=== PATIENT | male | born 1955 | race Caucasian/White ===

== ENCOUNTER 2016-09-23 06:35 | Day surgery (SDC) | payer BC ==
[~2016-09-23] VITALS: Ht 175.3 cm; Wt 97.4 kg
[~2016-09-23 06:35] MED LIST: ALBU6.7H INH; ATOR80TA76 PO; BUDE10.22 INH; FLUT16SP NAS; LISI-621 PO; METO25TA6 PO; RIVA20TA PO; VENL100T4 PO
--- OUTSIDE RECORDS SUMMARY | 2016-09-23 06:38 | XMS REPORT | Referral Summary ---
Author Author [facility] Organization [facility] Address Unknown Phone Unavailable Care Team Providers Care Supervisor Brine Name Role Phone Comfort John Primary Care Physician [phone] Encounter VC Date(s): 05/27/15 - 05/27/15 [facility] [address] [place], [place] [address] Discharge Diagnosis: Tobacco user Discharge Diagnosis: Screen for colon cancer Discharge Diagnosis: Hypertension Discharge Diagnosis: Physical exam Discharge Diagnosis: Chronic atrial fibrillation Discharge Diagnosis: Depression Discharge Diagnosis: Hypercholesterolemia Discharge Diagnosis: Hematuria Discharge Diagnosis: Obesity Discharge Diagnosis: On continuous oral anticoagulation Discharge Disposition: 01-Home or Self Care Attending Physician: Clarissa Serrano APRN Admitting Physician: Clarissa Serrano APRN Vital Signs Most recent to 1 oldest [Reference Range]: Peripheral Pulse 72 bpm Rate [60-100 bpm] (05/27/15 8:38 AM) Blood Pressure 118/70 mmHg [90-140/60-90 mmHg] (05/27/15 8:38 AM) Problem List Condition Effective Dates Status Health Status Informant Atrial Active fibrillation(Confirm ed) Depression(Confirmed Active ) On continuous oral Active anticoagulation(Conf irmed) Flu vaccine Active need(Confirmed) Obesity(Confirmed) Active patient Screen for colon Active cancer(Confirmed) Tobacco Active patient user(Confirmed) Transient ischemic < 03/27/15 Resolved attack (TIA)(Confirmed) Chicken < 03/27/15 Resolved pox(Confirmed) Allergies, Adverse Reactions, Alerts No Known Medication Allergies Medications atorvastatin 40 mg oral tablet 40 mg 1 tabs, Oral, Daily, # 30 tabs, 3 Refill(s), Pharmacy: [facility] [id number], 1 tabs Oral Daily Start Date: 03/25/15 Status: Ordered lisinopril 20 mg oral tablet 20 mg 1 tabs, Oral, Daily, # 30 tabs, 3 Refill(s), Pharmacy: [facility] [id number] Start Date: 03/25/15 Status: Ordered metoprolol tartrate 25 mg oral tablet 25 mg 1 tabs, Oral, BID, # 60 tabs, 3 Refill(s), [facility]: [facility] [address] Start Date: 03/25/15 Status: Ordered venlafaxine 150 mg oral tablet, extended release 150 mg 1 tabs, Oral, Daily, # 30 tabs, 3 Refill(s), Pharmacy: [facility] [id number], 1 tabs Oral Daily Start Date: 03/25/15 Status: Ordered Xarelto 20 mg oral tablet 20 mg 1 tabs, Oral, qPM, # 30 tabs, 3 Refill(s), Pharmacy: [facility] [address], 1 tabs Oral qPM Start Date: 03/25/15 Status: Ordered Results No data available for this section Immunizations No data available for this section Procedures Procedure Date Related Diagnosis Body Site circumcision inguinal hernia sinus surgery vasectomy Social History Social History Type Response Smoking Status Current every day smoker; Type: Cigarettes; Tobacco use per day: 1 Pack; Number of years: 40 Assessment and Plan Extracted from: Title: Office Visit Note-physical Author: Clarissa Serrano APRN Date: Assessment/Plan 1.Physical exam Normal physical examination. Patient is to follow-up in a year for recheck. All lab including CBC, chemistry, PSA, and urinalysis were normal. Lab results reviewed with patient. 2.Hypertension Well-controlled. Continuelisinopril andmetoprololas prescribed. 3.Chronic atrial fibrillation Intermittent. Continue Xarelto 20 mg as prescribed. 4.On continuous oral anticoagulation No active bleeding. 5.Obesity Lifestyle modification. 6.Screen for colon cancer Colonoscopy has been scheduledby this office today. 7.Tobacco user Encourage smoking cessation. 8.Hematuria Chronic hematuria. Follow-up with the [facility] to workup for the cause as he is a smoker. High-risk forbladder cancer. Patient verbalizes understanding. 9.Hypercholesterolemia Well-controlled. Continueatorvastatin 40 mg daily 10.Depression Continuevenlafaxine 150 [id number] mgas prescribed. Future Scheduled TestsReferral* Return to Clinic 05/27/15 11:17 PM * Return to Clinic 03/27/15 10:22 PM Referrals to Other Providers Referred by: Clarissa Serrano APRN Referred by: Clarissa Serrano APRN
--- OUTSIDE RECORDS SUMMARY | 2016-09-23 06:38 | XMS REPORT | Continuity of Care Document ---
Author Author [facility] Organization [facility] Address Unknown Phone Unavailable Allergies Active Description Code Type Severity Reaction Onset Reported/Identified Relationship to Patient Clinical Status Yes No Known Medication Allergies NKMA N/A N/A 03/25/2015 Medications Problems Procedures Results Encounters ACCT No. Visit Date/Time Discharge Status Pt. Type Provider Facility Loc./Unit Complaint [id number] 01/01/2016 09:11:00 2015 23:59:00 DIS Outpatient Clarissa Serrano [facility] 1 mon rck sob [id number] 12/04/2015 09:00:00 2015 23:59:00 DIS Outpatient Clarissa Serrano [facility] IM BREATHING PROBLEM [id number] 05/27/2015 08:23:00 2014 23:59:00 DIS Outpatient Clarissa Serrano [facility] IM cpe [id number] 03/25/2015 10:35:00 2014 23:59:59 CLS Outpatient Clarissa Serrano [facility] npt/get est
--- OUTSIDE RECORDS SUMMARY | 2016-09-23 06:38 | XMS REPORT | Referral Summary ---
Author Author [facility] Organization [facility] Address Unknown Phone Unavailable Care Team Providers Care Social Media Campaign Manager Name Role Phone Comfort John Primary Care Physician [phone] Encounter [facility] [id number] Date(s): 03/25/15 - 03/25/15 [facility] [address] [place], [place] [address] Discharge Diagnosis: On continuous oral anticoagulation Discharge Diagnosis: Atrial fibrillation Discharge Diagnosis: Encounter to establish care Discharge Diagnosis: Screen for colon cancer Discharge Diagnosis: Tobacco user Discharge Diagnosis: Flu vaccine need Discharge Diagnosis: Depression Discharge Disposition: 01-Home or Self Care Attending Physician: Clarissa Serrano APRN Admitting Physician: Clarissa Serrano APRN Vital Signs Most recent to 1 oldest [Reference Range]: Peripheral Pulse 18 bpm Rate [60-100 bpm] *LOW* (03/25/15 11:15 AM) Blood Pressure 118/72 mmHg [90-140/60-90 mmHg] (03/25/15 11:15 AM) Problem List Condition Effective Dates Status [...] Daily, # 30 tabs, 3 Refill(s), Pharmacy: [facility], 1 tabs Oral Daily Start Date: 03/25/15 Status: Ordered lisinopril 20 mg oral tablet See Instructions, TAKE 1 TABLET BY MOUTH EVERY DAY, # 30 tabs, 9 Refill(s), [facility] [id number], TAKE 1 TABLET BY MOUTH EVERY DAY Start Date: 09/28/15 Status: Ordered metoprolol tartrate 25 mg oral tablet 25 mg 1 tabs, Oral, BID, # 60 tabs, 3 Refill(s), Pharmacy: [facility] [id number] Start Date: 03/25/15 Status: Ordered NuLYTELY with Flavor Packs oral powder for reconstitution 240 mL, Oral, q15min, # 4,000 mL, 0 Refill(s), [facility] [address] Start Date: 05/29/15 Status: Ordered venlafaxine 150 mg oral tablet, extended release 150 mg 1 tabs, Oral, Daily, # 30 tabs, 3 Refill(s), [facility], 1 tabs Oral Daily Start Date: 03/25/15 Status: Ordered Xarelto 20 mg oral tablet 20 mg 1 tabs, Oral, qPM, # 30 tabs, 3 Refill(s), [facility] [id number], 1 tabs Oral qPM Start Date: 03/25/15 Status: Ordered Xarelto 20 mg oral tablet See Instructions, 1 TABS ORAL QPM, # 30 tabs, 3 Refill(s), [facility] [id number], 1 TABS ORAL QPM Start Date: 08/03/15 Status: Ordered Results Hematology Most recent to 1 oldest [Reference Range]: WBC [4.8-10.8 11.4 10*3/uL 10*3/uL] *HI* (03/25/15 12:02 PM) RBC [4.60-6.20] 4.95 (03/25/15 12:02 PM) Hgb [14.0-18.0 15.2 gm/dL gm/dL] (03/25/15 12:02 PM) Hct [42.0-52.0 %] 45.8 % (03/25/15 12:02 PM) MCV [82.0-99.0 fL] 92.5 fL (03/25/15 12:02 PM) MCH [27.0-32.0 pg] 30.7 pg (03/25/15 PM) MCHC [32.0-36.0 33.2 gm/dL gm/dL] (03/25/15 PM) RDW [11.5-14.5 %] 12.9 % (03/25/15 PM) Platelet [150-400 187 10*3/uL 10*3/uL] (03/25/15 PM) MPV [8.8-14.8 fL] 10.6 fL (03/25/15 PM) Immature 0.6 % Granulocytes (03/25/15) [0.0-1.0 %] Neutrophils [51-75 73 % %] (03/25/15 PM) Lymphocytes [20-46 18 % %] *LOW* (03/25/15 PM) Monocytes [4-11 %] 6 % (03/25/15: PM) Eosinophils [0-4 %] 1 % (03/25/15 PM) Basophils [0-2 %] 1 % (03/25/15 PM) Neutro Absolute 8.39 10*3 [1.90-7.00 10*3] *HI* (03/25/15 PM) Lymph Absolute 2.06 10*3 [0.80-3.30 10*3] (03/25/15: PM) Mathews Absolute 0.71 10*3 [0.30-1.00 10*3] (03/25/15: PM) Eos Absolute 0.15 10*3 [0.00-0.50 10*3] (03/25/15: PM) Baso Absolute 0.06 10*3 [0.00-0.20 10*3] (03/25/15: PM) Chemistry Most recent to 1 oldest [Reference Range]: Sodium Lvl [135-144 139 mEq/L mEq/L] (03/25/15: PM) Potassium Lvl 4.2 mEq/L [3.5-5.2 mEq/L] (03/25/15 PM) Chloride [99-111 102 mEq/L mEq/L] (03/25/15 PM) CO2 [23-31 mEq/L] 31 mEq/L (03/25/15 PM) AGAP [3-20] 6 (03/25/15 PM) BUN [8-26 mg/dL] 13 mg/dL (03/25/15 PM) Glucose Lvl [70-99 111 mg/dL mg/dL] *HI* (03/25/15 PM) Creatinine Lvl 0.86 mg/dL [0.72-1.25 mg/dL] (03/25/15 PM) eGFR [>60 mL/min] >60 mL/min 1 (03/25/15 PM) Calcium Lvl 9.9 mg/dL [8.9-10.5 mg/dL] (03/25/15 PM) Albumin Lvl [3.4-4.8 4.3 gm/dL gm/dL] (03/25/15 PM) Total Protein 6.7 gm/dL [6.2-8.1 gm/dL] (03/25/15 PM) Globulin [1.8-4.0 2.4 gm/dL gm/dL] (03/25/15 PM) ALT [0-55 U/L] 16 U/L (03/25/15 PM) AST [5-34 U/L] 18 U/L (03/25/15 PM) Alk Phos [40-150 94 U/L U/L] (03/25/15 PM) Bili Total [0.2-1.2 1.0 mg/dL mg/dL] (03/25/15 PM) PSA (wihout Reflex 0.7 ng/mL 2 Free) [0.0-4.5 (03/25/15 PM) ng/mL] Chol [0-199 mg/dL] 133 mg/dL (03/25/15 PM) Trig [0-149 mg/dL] 82 mg/dL (03/25/15 PM) HDL [40-84 mg/dL] 39 mg/dL *LOW* (03/25/15: PM) LDL [0-130 mg/dL] 78 mg/dL (03/25/15 PM) VLDL Cholesterol 16 mg/dL [0-28 mg/dL] (03/25/15: PM) Cardiac Risk 3.4 [0.0-5.7] (03/25/15: PM) TSH [0.35-4.94] 1.04 (03/25/15 PM) 1Result Comment: Multiply eGFR results by 1.21 for race. 2Result Comment: AUA PSA Best Practice Guidelines: Age-Adjusted PSA Values by Ethnic Group Age Range Asians - Caucasians Americans 40-49 0-2.0 0-2.0 0-2.5 50-59 0-3.0 0-4.0 0-3.5 60-69 0-4.0 0-4.5 0-4.5 70-79 0-5.0 0-5.5 0-6.5 Urinalysis Most recent to 1 oldest [Reference Range]: UA Color Yellow (03/25/15: PM) UA Appear Clear (03/25/15: PM) UA pH [5.0-8.0] 6.0 (03/25/15: PM) UA Leuk Est Negative [Negative] (03/25/15: PM) UA Nitrite Negative [Negative] (03/25/15: PM) UA Protein Negative [Negative] (03/25/15: PM) UA Glucose Negative [Negative] (03/25/15: PM) UA Ketones Negative [Negative] (03/25/15: PM) UA Urobilinogen 0.2 mg/dL [<1.0 mg/dL] (03/25/15: PM) UA Bili [Negative] Negative (03/25/15: PM) UA Blood [Negative] Pos 2+ *ABN* (03/25/15: PM) UA Spec Grav 1.005 [1.003-1.030] (03/25/15: PM) Type Clean Catch (03/25/15 PM) UA WBC [0-4] 0-2 (03/25/15 12:02 PM) UA RBC [0-4] 0-4 (03/25/15 12:02 PM) Epithelial Cells 0-2 (03/25/15 12:02 PM) Immunizations No data available for this section Procedures Procedure Date Related Diagnosis Body Site Collection of venous blood by venipuncture 03/25/15 Collection of venous blood by venipuncture 03/25/15 Collection of venous blood by venipuncture 03/25/15 circumcision inguinal hernia sinus surgery vasectomy Social History Social History Type Response Smoking Status Current every day smoker; Type: Cigarettes; Tobacco use per day: 1 Pack; Number of years: 40 Assessment and Plan Extracted from: Title: Office Visit Note-countersinker-est. Author: Clarissa Serrano MOTORIZED SQUAD COMMANDING OFFICER Date: 03/25/15 Assessment/Plan 1.Encounter to establish care Baseline Lab: CBC, chemistry, UA, TSH, PSA , and fasting lipid profile. Will schedule for physical in 3 months 2.Hypertension Well-controlled. 3.On continuous oral anticoagulation Continue Xareltoas prescribed. 4.Atrial fibrillation Chronic. Stable. 5.Depression Well-controlled. ContinueEffexor 6.Prostate cancer screening PSA. Treatment depending on test results. 8.Tobacco user Patient was counseled as to the multiple risks tohis health from continued use of tobacco products. It was explained that continuing to smoke may lead to multiple short and superintendent terminal negative health consequences, including but not limited to mouth/esophageal/lung cancer, COPD, and heart disease. The patient states he understands these risks, and also understands the options and resources [facility] for stop [facility]. Chantix, antidepressant, Nicotine replacement therapy, local hotlines, and local resources were discussed as viable options for helpinghim stophistobacco use. The total time spent counseling the patient regarding tobacco cessation was 5 minutes , Patient states that he at least will switch to electronic cigarettes. 9.Flu vaccine need Flu shot today. 10.Screen for colon cancer Colonoscopy is ordered. Will follow up the test result Addendum Follow up note: lab including blood count, kidney/liver function, PSA, Thyroid function, by and cholesterol are unremarkable. Except for some blood in the urine. I like to have him Maggie, to repeat his urinalysis in 4-6 weeks to see if it clears up. Clarissa Hermosillo If hematuria persists, a urology referral may be indicated. MOTORIZED SQUAD COMMANDING OFFICER on March 29, 2015 12:39:28 CDT Future Scheduled TestsReferral* Return to Clinic 05/27/15 11:17 PM * Return to Clinic 03/27/15 10:22 PM Referrals to Other Providers Referred by: Clarissa Serrano APRN Referred by: Clarissa Serrano APRN
--- OUTSIDE RECORDS SUMMARY | 2016-09-23 06:38 | XMS REPORT | Referral Summary ---
Author Author [facility] Organization [facility] Address Unknown Phone Unavailable Care Team Providers Care Heel Pricker Name Role Phone Comfort John Primary Care Physician [phone] Encounter [facility] Date(s): 01/01/16 - 01/01/16 [facility] [address] [place], [place] [address] Discharge Diagnosis: COPD, mild Discharge Diagnosis: Depression Discharge Disposition: 01-Home or Self Care Attending Physician: Clarissa Serrano APRN Admitting Physician: Clarissa Serrano APRN Vital Signs Most recent to 1 oldest [Reference Range]: Peripheral Pulse 66 bpm Rate [60-100 bpm] (01/01/16 9:23 AM) Blood Pressure 113/65 mmHg [90-140/60-90 mmHg] (01/01/16 9:23 AM) Problem List Condition Effective Dates Status Health Status Informant Depression(Confirmed Active ) Atrial Active fibrillation(Confirm ed) On continuous oral Active anticoagulation(Conf irmed) Flu vaccine Active need(Confirmed) Obesity(Confirmed) Active patient Screen for colon Active cancer(Confirmed) Tobacco Active patient user(Confirmed) Transient ischemic < 03/27/15 Resolved attack (TIA)(Confirmed) Chicken < 03/27/15 Resolved pox(Confirmed) Allergies, Adverse Reactions, Alerts No Known Medication Allergies Medications atorvastatin 40 mg oral tablet 40 mg 1 tabs, Oral, Daily, # 30 tabs, 3 Refill(s), Pharmacy: [facility] [id number], 1 tabs Oral Daily Start Date: 03/25/15 Status: Ordered lisinopril 20 mg oral tablet See Instructions, TAKE 1 TABLET BY MOUTH EVERY DAY, # 30 tabs, 9 Refill(s), eRx : [facility] [id number], TAKE 1 TABLET BY MOUTH EVERY DAY Start Date: 09/28/15 Status: Ordered metoprolol tartrate 25 mg oral tablet 25 mg 1 tabs, Oral, BID, # 60 tabs, 3 Refill(s), Pharmacy: [facility] [address] Start Date: 03/25/15 Status: Ordered NuLYTELY with Flavor Packs oral powder for reconstitution 240 mL, Oral, q15min, # 4,000 mL, 0 Refill(s), [facility] [address] Start Date: 05/29/15 Status: Ordered ProAir HFA 90 mcg/inh inhalation aerosol 2 puffs, Inhalation, QID, Shortness of Breath, # 1 Each, 1 Refill(s), [facility] [address] Start Date: 12/04/15 Status: Ordered Spiriva 18 mcg inhalation capsule 18 mcg 1 Each, Inhalation, Daily, use two inhalations of one capsule for each dose, # 30 Each, 2 Refill(s), [facility], 1 Each Inhalation Daily,Instr:use two inhalations of one capsule for each dose Start Date: 01/01/16 Status: Ordered venlafaxine 225 mg oral tablet, extended release 225 mg 1 tabs, Oral, Daily, # 30 tabs, 0 Refill(s), [facility] [address], 1 tabs Oral Daily Start Date: 12/04/15 Status: Ordered Xarelto 20 mg oral tablet See Instructions, TAKE 1 TABLET BY MOUTH EVERY EVENING, # 30 tabs, 6 Refill(s), [facility]Rx: [facility] [id number], TAKE 1 TABLET BY MOUTH EVERY EVENING Start Date: 12/08/15 Status: Ordered Xarelto 20 mg oral tablet 20 mg 1 tabs, Oral, qPM, # 30 tabs, 3 Refill(s), [facility] [address], 1 tabs Oral qPM Start Date: 03/25/15 Status: Ordered Xarelto 20 mg oral tablet See Instructions, 1 TABS ORAL QPM, # 30 tabs, 3 Refill(s), eRx: [facility] [id number], 1 TABS ORAL QPM Start Date: 08/03/15 Status: Ordered Results No data available for this section Immunizations No data available for this section Procedures Procedure Date Related Diagnosis Body Site circumcision inguinal hernia sinus surgery vasectomy Social History Social History Type Response Smoking Status Current every day smoker; Type: Cigarettes; Tobacco use per day: 1 Pack; Number of years: 40 Assessment and Plan Extracted from: Title: Office Visit Note-fu copd Author: Clarissa Serrano APRN Date: Assessment/Plan 1.COPD, mild Continue Spirivainhaler once daily. Use pro-airas needed. 2.Depression Continue Effexoras prescribed. Patient is to return to the office if symptom worsens or call if any questions and concerns. Patient verbalizes understanding. Orders: tiotropium, 18 mcg 1 Each, Inhalation, Daily, use two inhalations of one capsule for each dose, # 30 Each, 2 Refill(s), Pharmacy: [facility] [id number], 1 Each Inhalation Daily,Instr:use two inhalations of one capsule for each dose Future Scheduled TestsReferral* Return to Clinic 05/27/15 11:17 PM * Return to Clinic 01/01/16 9:36 AM * Return to Clinic 12/05/15 10:56 PM * Return to Clinic 03/27/15 10:22 PM Referrals to Other Providers Referred by: Clarissa Serrano APRN Referred by: Clarissa Serrano APRN Referred by: Clarissa Serrano APRN Referred by: Clarissa Serrano APRN
--- OUTSIDE RECORDS SUMMARY | 2016-09-23 06:38 | XMS REPORT | Referral Summary ---
Author Author [facility] Organization [facility] Address Unknown Phone Unavailable Care Team Providers Care Tech Writer Name Role Phone Comfort John Primary Care Physician [phone] Encounter [facility] Date(s): 03/25/15 - 03/25/15 [facility] [address] [place], [place] [address] Discharge Disposition: 01-Home or Self Care Attending Physician: Clarissa Serrano APRN Admitting Physician: Clarissa Serrano APRN Vital Signs Most recent to 1 oldest [Reference Range]: Peripheral Pulse 18 bpm Rate [60-100 bpm] *LOW* (03/25/15 11:15 AM) Blood Pressure 118/72 mmHg [90-140/60-90 mmHg] (03/25/15 11:15 AM) Problem List Condition Effective Dates Status Health Status Informant Tobacco Active patient user(Confirmed) Allergies, Adverse Reactions, Alerts No Known Medication Allergies Medications atorvastatin 40 mg oral tablet 40 mg 1 tabs, Oral, Daily, # 30 tabs, 3 Refill(s), Pharmacy: [facility] [address], 1 tabs Oral Daily Start Date: 03/25/15 Status: Ordered lisinopril 20 mg oral tablet 20 mg 1 tabs, Oral, Daily, # 30 tabs, 3 Refill(s), Pharmacy: [facility] [address] Start Date: 03/25/15 Status: Ordered metoprolol tartrate 25 mg oral tablet 25 mg 1 tabs, Oral, BID, # 60 tabs, 3 Refill(s), Pharmacy: [facility] [address] Start Date: 03/25/15 Status: Ordered venlafaxine 150 mg oral tablet, extended release 150 mg 1 tabs, Oral, Daily, # 30 tabs, 3 Refill(s), Pharmacy: [facility] [address], 1 tabs Oral Daily Start Date: 03/25/15 Status: Ordered Xarelto 20 mg oral tablet 20 mg 1 tabs, Oral, qPM, # 30 tabs, 3 Refill(s), Pharmacy: [facility] [address], 1 tabs Oral qPM Start Date: 03/25/15 Status: Ordered Results Hematology Most recent to 1 oldest [Reference Range]: WBC [4.8-10.8 11.4 10*3/uL 10*3/uL] *HI* (03/25/15 12:02 PM) RBC [4.60-6.20] 4.95 (03/25/15: PM) Hgb [14.0-18.0 15.2 gm/dL gm/dL] (03/25/15:02 PM) Hct [42.0-52.0 %] 45.8 % (03/25/15: PM) MCV [82.0-99.0 fL] 92.5 fL (03/25/15: PM) MCH [27.0-32.0 pg] 30.7 pg (03/25/15: PM) MCHC [32.0-36.0 33.2 gm/dL gm/dL] (03/25/15 12:02 PM) RDW [11.5-14.5 %] 12.9 % (03/25/15 12: PM) Platelet [150-400 187 10*3/uL 10*3/uL] (03/25/15 12:02 PM) MPV [8.8-14.8 fL] 10.6 fL (03/25/15:02 PM) Immature 0.6 % Granulocytes (03/25/15: PM) [0.0-1.0 %] Neutrophils [51-75 73 % %] (03/25/15 12:02 PM) Lymphocytes [20-46 18 % %] *LOW* (03/25/15: PM) Monocytes [4-11 %] 6 % (03/25/15: PM) Eosinophils [0-4 %] 1 % (03/25/15 PM) Basophils [0-2 %] 1 % (03/25/15 PM) Neutro Absolute 8.39 10*3 [1.90-7.00 10*3] *HI* (03/25/15 PM) Lymph Absolute 2.06 10*3 [0.80-3.30 10*3] (03/25/15 PM) [place] Absolute 0.71 10*3 [0.30-1.00 10*3] (03/25/15 PM) Eos Absolute 0.15 10*3 [0.00-0.50 10*3] (03/25/15: PM) Baso Absolute 0.06 10*3 [0.00-0.20 10*3] (03/25/15 PM) Chemistry Most recent to 1 oldest [Reference Range]: Sodium Lvl [135-144 139 mEq/L mEq/L] (03/25/15 PM) Potassium Lvl 4.2 mEq/L [3.5-5.2 mEq/L] [...] Total Protein 6.7 gm/dL [6.2-8.1 gm/dL] (03/25/15 12:02 PM) Globulin [1.8-4.0 2.4 gm/dL gm/dL] (03/25/15: PM) ALT [0-55 U/L] 16 U/L (03/25/15: PM) AST [5-34 U/L] 18 U/L (03/25/15: PM) Alk Phos [40-150 94 U/L U/L] (03/25/15 PM) Bili Total [0.2-1.2 1.0 mg/dL mg/dL] (03/25/15: PM) PSA (wihout Reflex 0.7 ng/mL 2 Free) [0.0-4.5 (03/25/15: PM) ng/mL] Chol [0-199 mg/dL] 133 mg/dL (03/25/15: PM) Trig [0-149 mg/dL] 82 mg/dL (03/25/15 PM) HDL [40-84 mg/dL] 39 mg/dL *LOW* (03/25/15: PM) LDL [0-130 mg/dL] 78 mg/dL (03/25/15 PM) VLDL Cholesterol 16 mg/dL [0-28 mg/dL] (03/25/15: PM) Cardiac Risk 3.4 [0.0-5.7] (03/25/15: PM) TSH [0.35-4.94] 1.04 (03/25/15: PM) 1Result Comment: Multiply eGFR results by 1.21 for race. 2Result Comment: AUA PSA Best Practice Guidelines: Age-Adjusted PSA Values by Ethnic Group Age Range Asians - Caucasians Americans 40-49 0-2.0 0-2.0 0-2.5 50-59 0-3.0 0-4.0 0-3.5 60-69 0-4.0 0-4.5 0-4.5 70-79 0-5.0 0-5.5 0-6.5 Urinalysis Most recent to 1 oldest [Reference Range]: UA Color Yellow (03/25/15 12:02 PM) UA Appear Clear (03/25/15 12:02 PM) UA pH [5.0-8.0] 6.0 (03/25/15 12:02 PM) UA Leuk Est Negative [Negative] (03/25/15 12:02 PM) UA Nitrite Negative [Negative] (03/25/15 12:02 PM) UA Protein Negative [Negative] (03/25/15 12: PM) UA Glucose Negative [Negative] (03/25/15 12:02 PM) UA Ketones Negative [Negative] (03/25/15 12:02 PM) UA Urobilinogen 0.2 mg/dL [<1.0 mg/dL] (03/25/15: PM) UA Bili [Negative] Negative (03/25/15 12:02 PM) UA Blood [Negative] Pos 2+ *ABN* (03/25/15 12:02 PM) UA Spec Grav 1.005 [1.003-1.030] (03/25/15 12:02 PM) Type Clean Catch (03/25/15 12:02 PM) UA WBC [0-4] 0-2 (03/25/15 12:02 PM) UA RBC [0-4] 0-4 (03/25/15 12:02 PM) Epithelial Cells 0-2 (03/25/15 12:02 PM) Immunizations No data available for this section Procedures Procedure Date Related Diagnosis Body Site Collection of venous blood by venipuncture 03/25/15 Social History Social History Type Response Smoking Status Current every day smoker; Type: Cigarettes; Tobacco use per day: 1 Pack; Number of years: 40 Assessment and Plan No data available for this section
[2016-09-23] MEDS ORDERED: LIDOCAINE 1% (10mg/ml) 2ml SDV INJ ONE (07:00)
[2016-09-23] MEDS ORDERED: LR 1,000 ML IV SCH (07:00)
[2016-09-23 07:06] VITALS: Ht 175.3 cm; Wt 97.4 kg
[2016-09-23 07:07] VITALS: BP 128/82; PULSE 76; RESP 14; TEMP 97.9; O2SAT 94
--- NOTE | 2016-09-23 07:23 | ANESPREOP ---
Anesthesia Record Date and Time DATE: 09/23/16 TIME: 07:21 Pre-Op Diagnosis Screening Proposed Surgical Procedure COLONOSCOPY NPO since: Midnight Allergies: Coded Allergies: No Known Drug Allergies (Verified Allergy, Unknown, 09/22/16) Ht/Wt/BMI Height: 5 ' 9.00 " Weight: 97.400 kg BMI: 31.7 kg/m2 Vital Signs Date Time Temp Pulse Resp B/P Pulse Ox O2 Delivery O2 Flow Rate FiO2 09/23/16 07:07 97.9 76 14 128/82 94 Room Air Medications Inpatient Medications Current Medications Medications (Trade) Dose Ordered Sig/Myra Start Time Stop Time Status Last Admin Dose Admin Lactated Ringer's (Lactated Ringers) 1,000 ml @ 50 mls/hr Q20H 09/23/16 07:00 Albuterol Sulfate (Proventil HFA 90 mcg/actuation) 200 Puff/6.7 G Inha, 2 PUFF INH Q4HPRN, (Reported) Atorvastatin Calcium (Atorvastatin Calcium) 80 Mg Tablet, 0.5 TAB PO DAILY, ( Reported) Budesonide/Formoterol Fumarate (Symbicort 80-4.5 Mcg Inhaler) 60 Puff/Inhaler Inhaler, 2 PUFF INH BID, (Reported) Fluticasone Propionate (Fluticasone Prop 50 mcg/actuation Nasal Bagley) 120 Bagley /16 G Bagley, 2 SPRAY RON HS, (Reported) Lisinopril (Lisinopril) 20 Mg Tablet, 1 TAB PO DAILY, (Reported) Metoprolol Tartrate (Metoprolol Tartrate) 25 Mg Tablet, 1 TAB PO BID, (Reported) Rivaroxaban (Xarelto) 20 Mg Tablet, 1 TAB PO DAILY, (Reported) Last Taken: on 09/18/16 Venlafaxine HCl (Venlafaxine HCl) 100 Mg Tablet, 1.5 TAB PO DAILY, (Reported) Currently on Beta Kaleb: Yes Beta Kaleb Last Taken: Metoprolol Medical/Surgical History Anesthesia PMH: Reports: *Hypertension, COPD, 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 smoked today?: Yes # of Packs per Day: 1 # of Years: 40 Use Chewing Tobacco?: No Second Hand Exposure: No Substance Use Type: does not use Past Surgical History Orthopedic Surgeries: Yes - BILATERAL SPURR REMOVALS, R HAND PINNING Abdominal Surgeries: Yes - HERNIA REPAIR W/ MESH Genitourinary Surgeries: Cardiac Surgeries: Endocrine Surgeries: Reproductive Surgeries: Neurological Surgeries: Ear Surgeries: Nose Surgeries: Throat Surgeries: Other Surgeries: Yes - COLONOSCOPY Anesthesia Adverse Reactions: FOUND none Family Hx of Anesthesia Advers: none Hx of Motion Sickness: No Pertinent Findings EKG Rhythm: Sinus Rhythm Physical Exam Respiratory: Lungs clear Cardiovascular: FOUND Regular rate, rhythm Airway Assessment Neck Extension: Fair Overall Assessment: May Be Diff Intubation ASA: 3 Plan Anesthesia Plan: TIVA Discussion Discussed risks/options/alternatives of anesthesia and questions answered. Patient consents. Nursing pain assessment noted. Attestation Statement Prior to the delivery of any anesthetic medication, I examined the patient, developed the plan, obtained the patient's consent and discussed the risk and benefits of the procedure with the patient/guardian. BASHIR HARRINGTON EAR[employer] SCIENCE TECHNICIAN Sep 23, 2016 07:23
[2016-09-23] MEDS ORDERED: PROPOFOL 500mg 50 ML IV ONE (08:27)
[2016-09-23 09:00] VITALS: BP 91/50; PULSE 62; RESP 18; TEMP 97; O2SAT 96
--- NOTE | 2016-09-23 09:06 | GSPOSTPROC ---
Immediate Operative Note DATE: 09/23/16 TIME: 09:05 Postop Diagnosis: Desire for screening Surgical Procedure: C-scope Surgeon: Manju ASA: 3 GABY ALMONTE MD Sep 23, 2016 09:06
[2016-09-23 09:15] VITALS: BP 120/67; PULSE 64; RESP 18; O2SAT 95
[2016-09-23 09:30] VITALS: BP 121/78; PULSE 67; RESP 20; O2SAT 95
--- NOTE | 2016-09-23 09:38 | ANESPO ---
Post-Op Note Date 09/23/16 Time: 09:37 Status Pt Participated in Evaluation: Pt participated in person Vital Signs Date Time Temp Pulse Resp B/P Pulse Ox O2 Delivery O2 Flow Rate FiO2 09/23/16 09:15 64 18 120/67 95 Room Air 09/23/16 09:00 97.0 Respiratory Function: Airway patent Telemetry Pattern: SR Mental Status: Alert/oriented Pain Level Intensity: 0 Hydration: Taking po fluids Complications during Recovery None apparent Follow-Up Instructions Instructions Per Surgeon BASHIR HARRINGTON [employer] MECH[employer]IC Sep 23, 2016 09:38
--- NOTE | 2016-09-23 12:34 | OPNOTEF ---
DATE OF OPERATION 09/23/2016 PREOPERATIVE DIAGNOSIS Desire for screening for colon and rectal carcinoma. POSTOPERATIVE DIAGNOSIS Desire for screening for colon and rectal carcinoma. OPERATION Total colonoscopy. SURGEON Dr. Manju PILLAI BEATRIZ. ASA Class 3 FINDINGS There were no colon or rectal tumors. There were no colon or rectal polyps. There were no colonic angiodysplasia lesions. There was no melanosis coli. There was no inflammatory bowel disease. There was no colonic diverticulosis. Findings were normal throughout the colon and rectum. DESCRIPTION OF OPERATION The patient was brought to the endoscopy room. The patient was placed on a cart in the endoscopy room. The patient was placed in left lateral recumbent position on the cart in the endoscopy room. The patient was premedicated with some intravenous sedation medication administered by the nurse stable manager. The Olympus colonoscope was used. The colonoscope was introduced into the rectum. The colonoscope was advanced up through the rectum and colon all the way up to the cecum. The appendiceal orifice was visualized. The ileocecal valve was visualized. The colonoscope was then withdrawn out through the colon and rectum and removed from the patient. Digital rectal examination was performed. Findings throughout procedure were as described above. The patient did continue to receive intravenous sedation medication administered by the nurse stable manager throughout the operation. The patient did tolerate the operation well. RECOMMENDATION Followup colonoscopy again in ten years. PEREZ
== END 2016-09-23 09:37 | disposition home or self-care (01) ==
LOC: SCU 06:35
PROVIDERS: ATTEND Surgery
DX: Z12.11 Encounter for screening for malignant neoplasm of colon (principal); Z79.01 Long term (current) use of anticoagulants; I10 Essential (primary) hypertension; E78.5 Hyperlipidemia, unspecified; J44.9 Chronic obstructive pulmonary disease, unspecified; F17.210 Nicotine dependence, cigarettes, uncomplicated; F32.9 Major depressive disorder, single episode, unspecified; Z79.899 Other long term (current) drug therapy
CPT/HCPCS: 45378; J2704; J7120